=== PATIENT | male | born 1950 | race Caucasian/White ===

== ENCOUNTER → 2024-11-12 | Outpatient (CLI) | payer MEDICARE, SELFPAY ==
[2024-11-12 16:09] LABS: Absolute Lymphocyte Count 1.67 X10^3/uL (0.83-4.51); Basophil# 0.04 X10^3/uL; Basophil% 0.5 % (0-1); Eosinophil# 0.24 X10^3/uL; Eosinophils% 3.1 % (0-5); Hemoglobin 15.1 g/dL (13.0-16.5); Lymphocyte # 1.67 X10^3/ul (0.83-4.51); Lymphocyte % 21.6 % (19-41); Mean Corp Hgb Conc 32.8 g/dL (32-36); Mean Corpuscular Volume 85.3 fL (80-94); Mean Platelet Vol. 11.3 fl (6.2-12.0); Monocyte# 0.82 X10^3/uL; Monocyte% 10.6 % (0-10); NRBC Flagged by Analyzer 0 % (0-5); Neutrophil # 4.95 X10^3/uL (2.7-7.7); Neutrophil % 63.9 % (47-70); Platelet Count 185 K/mm3 (150-450); RBC Distribution Width CV 13.2 % (11.6-14.6); RBC Distribution Width SD 40.8 fl (35.1-43.9); Red Blood Count 5.39 M/mm3 (4.6-6.2); White Blood Count 7.7 K/mm3 (4.4-11.0)
[2024-11-12 18:10] LABS: Hepatitis C Antibody Nonreactive (Nonreactive)
[2024-11-12 18:12] LABS: ALB/GLOB Ratio 1.6 RATIO (0.9-2.4); AST(SGOT) 23 U/L (<=37); Alanine Aminotransfer ALT/SGPT 32 U/L (<=46); Albumin, Serum 4.3 g/dL (3.4-4.8); Alkaline Phosphatase 36 U/L (40-129); Anion Gap 13 (5-15); BUN 21 mg/dL (4-19); BUN/Creat Ratio 21.4 RATIO (10-20); Calcium,Total 9.3 mg/dL (7.6-11.0); Carbon Dioxide 21.7 mmol/L (21.0-32.0); Chloride 105 mmol/L (98-108); Creatinine, Serum 0.96 mg/dL (0.70-1.20); EST Glomerular Filtration Rate 84 (>60); Globulin 2.6 g/dL (2.2-4.2); Glucose 179 mg/dL (70-99); Protein, Total 6.9 g/dL (5.9-8.4); Sodium Level 139 mmol/L (133-145); Total Bilirubin 0.18 mg/dL (0.00-1.30)
[2024-11-13 16:14] LABS: Hemoglobin A1c 6.4 % (<=5.6)
== END | disposition home or self-care (01) ==
PROVIDERS: PCP Family Medicine Geriatric Medicine; Referring Provider Family Medicine Geriatric Medicine; Visit Provider Family Medicine Geriatric Medicine
DX: E78.5 Hyperlipidemia, unspecified (principal); Z13.89 Encounter for screening for other disorder; R73.09 Other abnormal glucose
CPT/HCPCS: 36415; 80053; 83036; 84443; 85025; 86803

== ENCOUNTER → 2024-12-02 | Outpatient (CLI) | payer MEDICARE, SELFPAY ==
--- NOTE | 2024-12-02 07:46 | AAAS_ITS ---
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 in cross-sectional Peak systolic flow velocities within the proximal aorta axis. measure 146.9 cm/sec. Proximal aorta measures1.94cm. in longitudinal axis. Peak systolic flow velocities within the mid aorta measure Mid aorta measures2.12 X 2.05cm. in cross-sectional axis. 113.9 cm/sec. Mid aorta measures2.03cm. in longitudinal axis. Peak systolic flow velocities within the distal aorta Distal aorta measures1.887 X 1.85cm. in cross-sectional measure 98.6 cm/sec. axis. Distal aorta measures1.88cm. in longitudinal axis. Left Iliac Artery Left iliac artery measures 1.13 X 1.13 cm. in the cross-sectional axis. Left iliac artery measures 1.15 cm. in the longitudinal axis. Peak systolic velocity in the left iliac artery measures 58.3 cm/sec. Right Iliac Artery Right iliac artery measures 1.04 X 1.02 cm. in the cross-sectional axis. Right iliac artery measures 1.16 cm. in the longitudinal axis. Peak systolic velocity in the right iliac artery measures 67.4 cm/sec. VL/AAA Screening Interpretation Summary The dimensions of the intra-abdominal aorta appear normal, without evidence of aneurysmal dilatation. The iliac arteries are also normal in caliber bilaterally. The intra-abdominal aorta and iliac art eries are patent, demonstrating normal, pulsatile arterial flow and normal peak systolic velocities. Ordering Physician: Bret Peterson Chi Referring Physician: Bret Peterson Chi Performed By: Jess Bustamante, NIESHA, RVT
== END | disposition home or self-care (01) ==
PROVIDERS: PCP Family Medicine Geriatric Medicine; Referring Provider Family Medicine Geriatric Medicine; Visit Provider Family Medicine Geriatric Medicine
DX: I71.40 Abdominal aortic aneurysm, without rupture, unspecified (principal)
CPT/HCPCS: 76706